=== PATIENT | female | born 1985 | race Caucasian/White ===

== ENCOUNTER 2021-01-31 13:33 | Emergency (ER) | payer OTHER, SELFPAY ==
--- NOTE | 2021-01-31 13:41 | ED.URI ---
HPI - URI/Sore Throat General Chief Complaint: Upper Respiratory Infection Stated Complaint: Runny Nose, Drainage, Sore Throat Time Seen by Provider: 01/31/21 13:42 Source: patient and RN notes reviewed History of Present Illness HPI Narrative: Patient is a 35-year-old female who presents the urgent care with complaints of runny nose and sore throat. Patient states that it started last night. Denies of any known exposure to Covid or strep. Patient has not been vaccinated. Denies of any fever, chills, nausea, vomiting. No other acute complaints. No acute distress noted. Patient aware of the plan of care. Some parts of this dictation were generated by voice recognition software and may contain typographical and/or grammatical inaccuracies. Related Data Home Medications Medication Instructions Recorded Confirmed atorvastatin 20 mg PO DAILY 01/31/21 01/31/21 cetirizine [Zyrtec] 10 mg PO DAILY 01/31/21 01/31/21 levothyroxine 50 mcg PO DAILY 01/31/21 01/31/21 lisinopril 40 mg PO DAILY 01/31/21 01/31/21 subcutaneous insulin pump [[place] 01/31/21 01/31/21 2020 Insulin Pump] Allergies Allergy/AdvReac Type Severity Reaction Status Date / Time amoxicillin [From Amoxil] Allergy Rash Verified 01/31/21 13:58 Penicillins Allergy Swelling Verified 01/31/21 13:58 of Lip/Tongue/Throat Review of Systems Review of Systems: CONSTITUTIONAL: Denies fever, chills, or sweats. EYES: Denies visual changes, redness, or discharge. ENT: Reports of rhinorrhea and sore throat with postnasal drainage CARDIOVASCULAR: Denies chest pain, palpitations, or edema. RESPIRATORY: Denies cough or dyspnea. GASTROINTESTINAL: Denies abdominal pain, nausea, vomiting, or diarrhea. GENITOURINARY: Denies dysuria or hematuria. SKIN: Denies rash or itching. MUSCULOSKELETAL: Denies back pain, joint pain, or myalgia. NEUROLOGIC: Denies headache, numbness, or weakness. All other systems reviewed are negative, except as documented in HPI. PMFSH Comments At the time of my signature, I reviewed and agree with the nursing past medical, surgical, social, and family history. There is no relevant family history pertinent to the patient complaint. Exam Narrative: GENERAL: This is a well-nourished, well-developed patient, in no apparent distress. HEAD: normocephalic, atraumatic. EYES: PERRL. Sclera clear/white. Vision is grossly intact. EARS: External ears normal, auditory canals clear and without drainage, TMs normal without perforation. Hearing grossly intact. NOSE: External nose normal with no obvious nasal discharge, nares without redness, clear rhinorrhea. THROAT: Mucous membranes moist, posterior pharynx clear. Mild postnasal drainage NECK: Neck supple, non-tender without lymphadenopathy, masses or thyromegaly. CARDIOVASCULAR: Regular rate and rhythm without murmurs, gallops, or rubs. RESPIRATORY: Clear to auscultation. Breath sounds equal bilaterally. No wheezes, rales, or rhonchi. SKIN: warm, intact with no suspicious lesions or rash, good texture and turgor. NEURO: awake, alert, and oriented to person, place and time. There were no obvious focal neurologic abnormalities. EXTREMITIES: No clubbing, cyanosis, or edema. Course Vital Signs Vital signs: Vital Signs Temperature 97.3 F L 01/31/21 13:44 Pulse Rate 103 H 01/31/21 13:44 Respiratory Rate 16 01/31/21 13:44 Blood Pressure 148/73 H 01/31/21 13:44 Pulse Oximetry 100 01/31/21 13:44 Temperature 97.3 F L 01/31/21 13:44 Pulse Rate 103 H 01/31/21 13:44 Respiratory Rate 16 01/31/21 13:44 Blood Pressure 148/73 H 01/31/21 13:44 Pulse Oximetry 100 01/31/21 13:44 Reviewed-patient is informed that they may have pre-hypertension or hypertension based on a blood pressure reading in the department. I recommend the patient call the primary care provider listed on their discharge instructions or a physician of their choice this week to arrange follow-up for further evaluation o
[2021-01-31 13:44] VITALS: BP 148/73; PULSE 103; RESP 16; TEMP 36.3; O2SAT 100
== END 2021-01-31 14:23 | disposition home or self-care (01) ==
PROVIDERS: Emergency Provider Nurse Practitioner Family; PCP Physician Assistant
DX: J06.9 Acute upper respiratory infection, unspecified (principal)
CPT/HCPCS: 87081; 87880; 99213; G0463

== ENCOUNTER 2021-11-07 12:50 | Outpatient (CLI) | payer OTHER, SELFPAY ==
[2021-11-07 18:30] LABS: Add Urine Microscopic? YES; Appearance Urine Cloudy (Clear); Bilirubin Urine Negative (Negative); Blood Urine 1+ (Negative); Color Urine Yellow (Yellow); Glucose Urine UA Trace mg/dL (Negative); Ketones Urine Negative (Negative); Leukocyte Esterase Ur 1+ LEU/UL (Negative); Nitrate Urine Positive (Negative); Protein Urine 3+ mg/dL (Negative); Specific Grav Ur 1.025 (1.001-1.035); Urobilinogen Urine 0.2 mg/dL (<2.0)
[2021-11-07 18:34] LABS: Bacteria Urine 2+ /hpf; RBC Urine 21-50 /hpf (0-2); Squamous Epithelial Cell Urine Occasional /hpf (Few); WBC Urine >75 /hpf
== END 2021-11-07 12:51 | disposition home or self-care (01) ==
PROVIDERS: PCP Family Medicine; Visit Provider Family Medicine
DX: N39.0 Urinary tract infection, site not specified (principal); R30.0 Dysuria; R35.0 Frequency of micturition
CPT/HCPCS: 81001; 87077; 87086; 87186

== ENCOUNTER 2021-12-30 13:24 | Outpatient (CLI) | payer OTHER, SELFPAY ==
[2021-12-30 18:44] LABS: Appearance Urine Clear (Clear); Bilirubin Urine Negative (Negative); Color Urine Yellow (Yellow); Glucose Urine UA 2+ mg/dL (Negative); Ketones Urine Negative (Negative); Leukocyte Esterase Ur Trace LEU/UL (NEGATIVE); Nitrate Urine Negative (Negative); Protein Urine 2+ mg/dL (Negative); Urobilinogen Urine 0.2 mg/dL (<2.0)
[2021-12-30 19:04] LABS: Mucus Urine Rare /lpf; RBC Urine 0-2 /hpf (0-2); Squamous Epithelial Cell Urine Rare /hpf (Few); WBC Urine 16-20 /hpf (0-3)
[2021-12-30 19:09] LABS: Add Urine Microscopic? YES; Blood Urine Trace-Intact (Negative)
== END 2021-12-30 13:25 | disposition home or self-care (01) ==
PROVIDERS: PCP Family Medicine; Visit Provider Family Medicine
DX: N39.0 Urinary tract infection, site not specified (principal)
CPT/HCPCS: 81001

== ENCOUNTER 2022-07-17 08:32 | Outpatient (CLI) | payer OTHER, SELFPAY ==
--- NOTE | ~2022-07-17 | XR_ITS ---
PA, oblique, and lateral views of the right thumb CLINICAL HISTORY: Pain FINDINGS: No fracture or dislocation seen. Joint spaces are preserved. Soft tissues are unremarkable. IMPRESSION: Unremarkable exam. Reviewed, dictated and finalized at location M. E INSPECTOR FINAL IMPRESSION: Unremarkable exam.
[2022-07-17 19:24] LABS: Iron 84 ug/dL (37-170)
[2022-07-17 19:33] LABS: Percent Iron Saturation 28 % (20-50)
[2022-07-17 19:35] LABS: Alanine Aminotransferase 23 U/L (6-35); Albumin Level 4.3 g/dL (3.5-5.1); Alkaline Phosphatase 52 U/L (38-126); Anion Gap 4 mmol/L (8-16); Aspartate Amino Transferase 91 U/L (14-36); Bilirubin,Total 0.6 mg/dL (0.2-1.3); Blood Urea Nitrogen 39 mg/dL (7-17); Calcium 9.6 mg/dL (8.4-10.2); Carbon Dioxide 30 mmol/L (22-30); Chloride 97 mmol/L (98-107); Estimated Glomerular Filt Rate 34; Glucose 182 mg/dL (65-110); Potassium 4.4 mmol/L (3.4-5.0); Sodium 131 mmol/L (137-145)
[2022-07-17 21:08] LABS: Basophils Absolute Auto 0.1 K/mm3 (0.0-0.1); Eosinophils Absolute Auto 0.7 K/mm3 (0-0.3); Eosinophils Percent Auto 9.2 % (0-4.4); Hematocrit 38.7 % (37.0-47.0); Hemoglobin 12.1 g/dL (12.0-15.0); Immature Granulocyte Absolute 0.03 K/mm3 (0.00-0.031); Immature Granulocyte Percent A 0.4 % (0-0.5); Lymphocytes Absolute Auto 1.77 K/mm3 (0.9-3.2); Lymphocytes Percent Auto 22.2 % (18.3-44.2); Mean Corpuscular HGB Conc 31.3 g/dl (32-36); Mean Corpuscular Hemoglobin 29.4 pg (26-34); Mean Corpuscular Volume 93.9 fl (80-100); Mean Platelet Volume 10.6 fl (7.4-10.4); Monocytes Absolute Auto 0.6 K/mm3 (0.1-0.6); Monocytes Percent Auto 7.5 % (2.6-8.5); Neutrophils Absolute Auto 4.8 K/mm3 (1.3-6.7); Neutrophils Percent Auto 59.7 % (45.5-73.1); Platelet Count Result 256 k/mm3 (150-375); Red Blood Count 4.12 M/mm3 (4.2-5.4); Red Cell Distribution Width 13.1 % (11.5-14.5)
[2022-07-20 12:55] LABS: Erythropoietin (EPO) 8.8 mIU/mL (2.6-18.5)
== END 2022-07-17 08:33 | disposition home or self-care (01) ==
LOC: ANHBWCLAB 08:33
PROVIDERS: PCP Family Medicine; Visit Provider Family Medicine
DX: D64.9 Anemia, unspecified (principal); E03.9 Hypothyroidism, unspecified; E11.319 Type 2 diabetes mellitus with unspecified diabetic retinopathy without macular edema; I10 Essential (primary) hypertension; N28.9 Disorder of kidney and ureter, unspecified; M79.646 Pain in unspecified finger(s)
CPT/HCPCS: 36415; 73140; 80053; 82668; 83540; 83550; 85025

== ENCOUNTER 2022-09-15 15:10 | Outpatient (CLI) | payer OTHER, SELFPAY ==
[2022-09-15 17:38] LABS: Appearance Urine Clear (Clear); Bacteria Urine None Seen /hpf; Bilirubin Urine Negative (Negative); Color Urine Yellow (Yellow); Glucose Urine UA 2+ mg/dL (Negative); Ketones Urine Negative (Negative); Leukocyte Esterase Ur Negative LEU/UL (NEGATIVE); Nitrate Urine Negative (Negative); Non Pathogenic Casts 0-2; Protein Urine 3+ mg/dL (Negative); RBC Urine 0-2 /hpf (0-2); Specific Grav Ur 1.016 (1.001-1.035); Squamous Epithelial Cell Urine None seen /hpf (Few); Urobilinogen Urine 0.2 mg/dL (<2.0); WBC Urine 0-5 /hpf (0-3); pH Urine 5.5 (5.0-9.0)
[2022-09-15 17:46] LABS: Add Urine Microscopic? YES
[2022-09-15 18:40] LABS: Alanine Aminotransferase 18 U/L (6-35); Albumin Level 3.9 g/dL (3.5-5.1); Alkaline Phosphatase 43 U/L (38-126); Anion Gap 8 mmol/L (8-16); Aspartate Amino Transferase 24 U/L (14-36); Bilirubin,Total 0.4 mg/dL (0.2-1.3); Blood Urea Nitrogen 29 mg/dL (7-17); Calcium 9.1 mg/dL (8.4-10.2); Carbon Dioxide 27 mmol/L (22-30); Chloride 102 mmol/L (98-107); Estimated Glomerular Filt Rate 40; Glucose 239 mg/dL (65-110); Sodium 137 mmol/L (137-145)
[2022-09-15 18:47] LABS: Creatinine Urine 42.1 mg/dL
[2022-09-15 19:47] LABS: Microalbumin Urine Random > 1140.0 mg/L (0-16.7)
== END 2022-09-15 15:11 | disposition home or self-care (01) ==
LOC: ANHBWCLAB 15:11
PROVIDERS: PCP Family Medicine; Visit Provider Family Medicine
DX: Z00.00 Encounter for general adult medical examination without abnormal findings (principal); D64.9 Anemia, unspecified; E03.9 Hypothyroidism, unspecified; E11.319 Type 2 diabetes mellitus with unspecified diabetic retinopathy without macular edema; I10 Essential (primary) hypertension; N28.9 Disorder of kidney and ureter, unspecified; R11.2 Nausea with vomiting, unspecified
CPT/HCPCS: 36415; 80053; 81001; 82043; 83036

== ENCOUNTER 2025-04-01 10:13 | Outpatient (CLI) | payer BC, SELFPAY ==
--- NOTE | 2025-04-01 10:27 | ECG_ITS ---
Test Date: 2025-04-01 10:47:47 Measurements Intervals [place] Rate: 77 P: 37 MO: 131 QRS: 60 QRSD: 83 T: 67 QT: 350 QTc: 396 Interpretive Statements SINUS RHYTHM No previous ECG available for comparison Electronically Signed On 04-01-2025 10:56:22 RN PERIOPERATIVE by Ag Caicedo D.O
[2025-04-01 10:41] LABS: INR 1.0; Prothrombin Time 12.7 Seconds (11.1-14.7)
[2025-04-01 10:42] LABS: Partial Thromboplastin Time 29.2 Seconds (22.3-36.8)
[2025-04-01 10:49] LABS: Anion Gap 10 mmol/L (4-12); Blood Urea Nitrogen 20 mg/dL (7-17); Calcium 9.7 mg/dL (8.4-10.2); Carbon Dioxide 24 mmol/L (22-30); Chloride 103 mmol/L (98-107); Estimated Glomerular Filt Rate 35; Glucose 147 mg/dL (65-110); Potassium 4.1 mmol/L (3.4-5.0); Sodium 137 mmol/L (137-145)
== END 2025-04-01 10:14 | disposition home or self-care (01) ==
LOC: ANHLAB 10:13
PROVIDERS: PCP Family Medicine; Visit Provider Anesthesiology
DX: N28.9 Disorder of kidney and ureter, unspecified (principal); E10.9 Type 1 diabetes mellitus without complications; I10 Essential (primary) hypertension; Z01.818 Encounter for other preprocedural examination
CPT/HCPCS: 36415; 80048; 85610; 85730; 93005

== ENCOUNTER 2025-04-03 02:13 | Day surgery (SDC) | payer BC, SELFPAY ==
--- OUTSIDE RECORDS SUMMARY | 2017-04-07 04:58 | XMS_ITS | Continuity of Care Document ---
Author Organization [facility] Address [address] [place] [address] Phone Care Team Providers Care Janitor Cleaner Name Role Phone Calvin Lord MD Unavailable Unavailable Allergies, Adverse Reactions, Alerts Substance Reaction Status Criticality amoxicillin Active No Information PENICILLIN Active No Information Medications Medication Instructions Dosage Effective Dates (start - stop) Status Comments Humalog 100 unit/mL subcutaneous solution inject by subcutaneous route per prescriber's instructions. Insulin dosing requires individualization. 0.00 - Active labetalol 100 mg tablet take 1 tablet by oral route 2 times every day 100 MG - Active Cinnamon 500 mg capsule - Active biotin 1 mg capsule - Active Tablet 28 mg iron-800 mcg - Active cranberry 400 mg capsule - Active Advance Directives Directive Yes / No Effective Date File Name No Information Encounters Encounter Description Practice Location Reason(s) For Visit Diagnoses Date Provider Providers Copied on Encounter [facility], [address] [place] [address] [address], [place], [place], [id number], [place] tel:[phone] [address] Dutch GONZALEZ Professional No Information [address], [place], [place], [id number], [place]. tel:[phone] Family History Family Member Type Diagnosis Age At Onset Paternal grandfather Problem (finding) diabetes mellit [place] type 2 Paternal grandmother Problem (finding) diabetes mellit [place] type 2 Payers Payer name Insurance type Covered republican ID Authorfernando marie(s) No Information Social History Type Description Quantity Date Captured Comments Alcohol Use Details Caffeine Use Details Tobacco Use Status No Information Smoking Status Never smoker Non-Smoking Tobacco Use Details : No Details Available : No Details Available Sex Female Chief Complaint And Reason For Visit No Information Reason For Referral Reason For Referral No Information History Of Present Illness Encounter Date Complaint History Of Prese nt Illness No Information Functional Status Date Functional Assessmen t No Information Instructions Date Instruction Additional Infor mation No Information Assessments Type Assessment Date No Information Patient Care Teams Name Effective Dates (start - stop) Status Members No Information
--- NOTE | 2025-03-30 08:30 | PM.IMHP ---
H&P: HPI History of Present Illness Date/Time: 03/30/25 08:30 Chief Complaint: Patient shoulder pain left. She essentially has a frozen shoulder is unable elevate her arm above about 120?. She has had physical therapy injections and anti-inflammatory medication without significant relief. She would like to consider a manipulation. Review of Systems Musculoskeletal: Musculoskeletal: Reports arthralgias, Reports joint swelling and Reports stiffness PMFSH Past Medical History Medical History Pre-eclampsia Trigger thumb Retinopathy Cataract Macular edema Headache Asthma Anemia Preventative health care Hip pain Pain of right thumb Thumb pain Recurrent UTI Nausea & vomiting Surgical History Surgical History History of surgical procedure on eye proper using laser H/O vitrectomy Hx of section Hx of dilation and curettage Hx of cataract surgery History of carpal tunnel surgery Family History Family History Father Hypertension Heart disease Depression DVT (deep venous thrombosis) Mother Asthma Disorder of thyroid Hypertension Depression Son Depression Grandparent Hypertension Disorder of thyroid Heart disease Diabetes mellitus Grandparent Hypertension Family history of elevated blood lipids Family history of malignant neoplasm of ovary Sibling DVT (deep venous thrombosis) Social History Social History (Updated 03/28/25 @ 07:42 by Suzie Hassan [facility]) Smoking status: Never smoker Second hand tobacco smoke exposure: No Alcohol intake: current Alcohol use details: rare- Mixed Drinks Substance use: never Current Housing: Decline to Answer Concerned About Future Housing: Decline to Answer Difficulty Paying Gas/Electric Bills: Decline to Answer Difficulty Paying for Meds: Decline to Answer Currently Unemployed: Decline to Answer Education: Decline to Answer Difficulty w/ Childcare or Family Care: Decline to Answer Living arrangements: with family Gender identity (if verbalized by the patient): Female Sexual Orientation (if Verbalized by the Patient): Straight or Heterosexual Agree to blood products: Yes Meds Home Medications and Allergies Home Medications ?Medication ?Instructions ?Recorded ?Confirmed ?Type cetirizine 10 mg capsule (Zyrtec) 10 mg PO DAILY 01/31/21 03/28/25 History subcutaneous insulin pump 01/31/21 03/28/25 History insulin aspart U-100 100 unit/mL 1 sliding scale dose subcut 01/25/24 03/28/25 History subcutaneous solution (Novolog USEASDIRECTD U-100 Insulin aspart) levothyroxine 50 mcg tablet 75 mcg PO DAILY 01/25/24 03/28/25 History atorvastatin 20 mg tablet 20 mg PO DAILY #90 tabs 11/14/24 03/28/25 Rx Held on 03/02/25. Instructions: .Provider Order biotin 1 mg capsule 1 mg PO DAILY 12/15/24 03/28/25 History blood-glucose sensor (Dexcom G6 12/15/24 03/28/25 History Sensor device) zinc acetate 25 mg (zinc) capsule 25 mg PO DAILY 12/15/24 03/28/25 History tirzepatide 12.5 mg/0.5 mL 12.5 mg (0.5 mL) subcut WEEKLY #6 12/28/24 02/23/25 Rx subcutaneous pen injector mL (Mounjaro) Held on 03/02/25. Instructions: .Provider Order lisinopril 40 mg tablet 40 mg PO DAILY #90 tabs 01/09/25 03/28/25 Rx Held on 03/02/25. Instructions: .Provider Order ascorbic acid (vitamin C) 500 mg mg PO 02/23/25 03/28/25 History capsule cinnamon bark 500 mg capsule 1,000 mg PO DAILY 02/23/25 03/28/25 History (Cinnamon) cranberry 500 mg capsule 10,000 mg PO BID 02/23/25 03/28/25 History tirzepatide 10 mg/0.5 mL 10 mg (0.5 mL) subcut WEEKLY #2 mL 03/07/25 03/28/25 Rx subcutaneous pen injector (Mounjaro) cholecalciferol (vitamin D3) 25 50,000 unit PO WEEKLY 03/28/25 03/28/25 History mcg (1,000 unit) capsule Allergies Allergy/AdvReac Type Severity Reaction Status Date / Time amoxicillin (From Amoxil) Allergy Rash Verified 03/28/25 07:14 clindamycin Allergy Rash Verified 03/28/25 07:14 Penicillins Allergy Swelling Verified 03/28/25 07:14 of Lip/Tongue/Throat Exam Narrative: On exam she has elevation about 120. She has external rotation to 40. She has pain and stiffness beyond this. Neurologically she is intact. She has pain with any manipulation. 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 She has failed conservative treatment. She would like to consider manipulation. I have discussed with her in detail including the risks, benefits, limitations, and alternatives in detail, including fracture. These were discussed in detail the patient understands and agrees like to proceed. Will proceed per her request with manipulation of her left shoulder.
[2025-03-31 12:59] VITALS: BMI 25.7
--- NOTE | 2025-03-31 13:10 | PC.NURSE ---
[facility] has started construction of its new state of the art ER which will open Spring 2026. With this, we anticipate parking may be a challenge for some our surgical patients and families. Parking spaces are limited but are available for all Surgical, obstetrics, and ER patients sharing this lot. If you arrive and find you are having a hard time finding a parking space, please note that we understand the challenges, please drive around the hospital and park near Hospital Entrance 1. When you enter this entrance, you can ask a volunteer to direct or take you back to the surgical waiting area to check in. We appreciate everyone?s understanding of these expected challenges while we build for your future. Report to the Outpatient Waiting Room, entrance under the green pavilion located off [address], at time _0645_ on date _[id number]_. Planned Procedure Time: _0845_.? Time changes happen often and if your time is changed the preop area will call you the afternoon before. - You and your visitor will be asked to self-screen and do not enter if you have any COVID symptoms. Please call surgeon if you need to reschedule. - A mask is optional within the hospital at this time. Patients may have clear liquids (water, carbonated beverages, clear teas, apple juice) until 3 hours prior to surgery with a maximum of 20 ounces. - No food from midnight until time of surgery and no smoking, or chewing tobacco (or any form of nicotine). No chewing gum, candy or mints. Take only the following medications with a SIP of water on the morning of surgery: __Continue insulin pump. Call preop [phone] Thursday morning if any problems. DO NOT STOP ANY OF YOUR OTHER PRESCRIPTION MEDICATIONS PRIOR TO SURGERY EXCEPT THE FOLLOWING Hold all vitamins and supplements for 3 days per anesthesiologist. Stop now. Medications to discontinue per physician Date to take last dose Please no make-up, nail dominican, hairspray, perfume, deodorant, or body powder the day of surgery.? No jewelry (including any body piercings) or valuables the day of surgery, leave them at home.? Please take a shower or bath the night before, or the morning of, surgery with an antibacterial soap.? Wear comfortable, loose fitting clothing.? - Jewelry must be removed prior to entering the operating room.? Rings and piercings that are not removed may be cut off. - The hospital will not accept responsibility for valuables.? - Please leave all valuables, including medications, at home the day of surgery. If you are going home after surgery, a licensed driver salesman must drive you home.? - NO public transportation without another adult if you receive anesthesia. - We recommend that an adult stay with you for 24 hours following discharge. - We also recommend that you do not drive, make important decision, drink alcoholic beverages, or take any drugs that were not prescribed by your health care provider for at least 24 hours after your discharge time. Follow any additional instructions given to you from your surgeon. Telephone instructions given to _Mally__and asked if any additional questions and then verbalized understanding. Patient advised to call surgeon office or pre surgery nurse liaison [phone] if any additional questions.
--- OUTSIDE RECORDS SUMMARY | 2025-04-03 02:17 | XMS_ITS | Encounter Summary ---
Author Organization [facility] Address [address] [place] [address] Care Team Providers Care Orchid Superintendent Name Role Phone Aaron Bruno MD Primary Care Provider [phone] Reason for Visit * Reason Onset Date Comments MEDICATION REFILL 02/09/2024 Encounter Details Date Type Department Care Team (Late st Contact Info) Description 02/09/2024 Refill [facility] - Endocrinology [address] [place] [address] Erika Joseph, DO [address] [id number] MEDICATION REFILL Social History Tobacco Use Types Packs/Day Years Used Date Smoking Tobacco: Never Smokeless Tobacco: Never Alcohol Use Standard Drinks/Week Comments No 0 (1 standard drink = 0.6 oz pur e alcohol) Comments No Sex and Gender Information Value Date Recorded Sex Assigned at Not on file Legal Sex Female 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 Answer Date of Assessment Author No 04/27/2018 2:52 PM Kaycee Seymour RN * Is person blind or have serious difficulty seeing? Answer Date of Assessment Author No 04/27/2018 2:52 PM Kaycee Seymour RN * Does person have serious difficulty walking/climbing stairs? Answer Date of Assessment Author No 04/27/2018 2:52 PM Kaycee Seymour RN * Does person have difficulty dressing/bathing? Answer Date of Assessment Author No 04/27/2018 2:52 PM Kaycee Seymour RN * Does person have difficulty doing errands alone? Answer Date of Assessment Author No 04/27/2018 2:52 PM Kaycee Seymour RN documented as of this encounter Mental Status * Does person have difficulty concentrating/remembering/making decisions? 

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
--- OUTSIDE RECORDS SUMMARY | 2025-04-03 02:18 | XMS_ITS | Encounter Summary ---
Author Organization [facility] Address [address] [place] [address] Care Team Providers Care Felter Tennis Balls Name Role Phone Segun Hankins Primary Care Provider [phone] Aaron Bruno MD Primary Care Provider [phone] Aaron Bruno MD Primary Care Provider [phone] Reason for Visit * Reason Onset Date Comments Question 01/03/2022 Encounter Details Date Type Department Care Team (Late st Contact Info) Description 01/03/2022 Telephone [facility] End[facility], [facility] [address] [place] [address] Erika Joseph, DO [address] [facility] [address] [place] [id number] Question Social History Tobacco Use Types Packs/Day Years Used Date Smoking Tobacco: Never Smokeless Tobacco: Never Alcohol Use Standard Drinks/Week Comments No 0 (1 standard drink = 0.6 oz pur e alcohol) Comments No Sex and Gender Information Value Date Recorded Sex Assigned at Not on file Legal Sex Female 7:06 AM DIRECTOR DAY CARE CENTER Gender Identity Not on file Sexual Orientation [...] Kaycee Seymour RN documented in this encounter Miscellaneous Notes * Telephone Encounter - Elin Payne RN - 01/03/2022 4:05 PM CDT Pt called office stating that she is running out of Omnipods sooner than it is prescribed for. She stated that sometimes she is running out of insulin but not all the time. She stated that she changes the pods every 2 days rather than every 3 days because it feels like it's getting infected. She stated that it's itchy and it drives her crazy and she has to change it. She is wondering if Dr. Joseph could change the prescription to every 2 days instead of every 3 days. documented in this encounter Plan of Treatment Not on file documented as of this encounter Visit Diagnoses Not on filedocumented in this encounter Care Teams Felter Tennis Balls Relationship Specialty Start Date End Date Segun Hankins PA [address] [place] [id number] PCP - General 05/12/18 02/22/23 Aaron Bruno MD [address] [place] [phone] PCP - General Family Medicine 02/23/23 12/30/23 Aaron Bruno MD [address] [place] [address] PCP - General Family Medicine 12/31/23 documented as of this encounter
--- OUTSIDE RECORDS SUMMARY | 2025-04-03 02:18 | XMS_ITS | Clinical Summary ---
Author Organization [facility] Address [address] [place] [address] Phone Care Team Providers Care Property Master Name Role Phone Segun Hankins Primary Care Provider [phone] Allergies Active Allergy Reactions Criticality Noted Date Comments Amoxicillin Rash,Swelling 12/12/2016 Penicillins Rash,Swelling 12/12/2016 Medications Vit-Fe Fumarate-FA ( VITAMIN PO) Take by mouth daily. Active Cholecalcifero l (VITAMIN D PO) Take by mouth. Activ e Ascorbic Acid (VITAMIN C PO) Take by mouth. Active Cranberry-Grace min C (AZO CRANBERRY URINARY TRACT PO) Take by mouth. Activ e BIOTIN PO Take by mouth. Activ e labetalol (NORMODYNE) 100 MG Tablet Take 1 Tab by mouth 2 times daily. 180 Tab 3 7 Active Additional Information Patient taking differently: 200 mgOral 2 TIMES DAILY, Reported on 10/25/2018 Blood Glucose Monitoring Suppl (ONE TOUCH ULTRA SYSTEM KIT) w/Device Kit 1 Kit by Does not apply route daily. 1 Each 7 Active Lancets Misc Test 4 times daily. 400 Lancet 3 7 Active cyclobenzaprin e (FLEXERIL) 10 MG Tablet TK 1 T PO TID PRN 0 8 Active furosemide (LASIX) 40 MG Tablet Take 40 mg by mouth daily. 11 8 Active NIFEdipine CR (PROCARDIA-XL) 30 MG TABLET SR 24 HR Take by mouth. 8 Active Zinc 50 MG Capsule Take 50 mg by mouth daily. Active IRON POIndications: once a day Take 325 mg by mouth daily. Active insulin lispro (ADMELOG) 100 UNIT/ML Solution UP TO 100 UNITS EVERY DAY SUBCUTANEOUSLY PER INSULIN PUMP SETTING 90 mL 1 9 Active predniSONE (DELTASONE) 20 MG Tablet Take 1 Tab by mouth daily. 9 Tab 9 Active Glucose Blood (CONTOUR NEXT TEST) Strip Test blood glucose 6-8 times daily. 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 12/12/2016 High blood pressure 12/12/2016 Dyslipidemia 12/12/2016 Family History Medical History Relation Name Comments Heart Disease Father Narcolepsy Father Thyroid Nodule Mother Relation Name Status Comments Father Mother Social History Tobacco Use Types Packs/Day Years Used Date Smoking Tobacco: Never Smokeless Tobacco: Never Tobacco Cessation:Counseling Given: No Alcohol Use Standard Drinks/Week Comments Yes 0 (1 standard drink = 0.6 oz pur e alcohol) Sexually Active Control Partners Comments Yes Male Comments No Sex and Gender Information Value Date Recorded Sex Assigned at Not on file Legal Sex Female 11:36 PM CDT Gender Identity Not on file Sexual Orientation Not on file Last Filed Vital Signs Vital Sign Reading Time Taken Comments Blood Pressure 145/82 12/01/2018 4:12 PM CDT Pulse 82 12/01/2018 4:12 PM CDT Temperature 36.9 C (98.4 F) 12/01/2018 3:20 PM CDT Respiratory Rate 17 12/01/2018 4:12 PM CDT Oxygen Saturation 99% 12/01/2018 3:20 PM CDT Inhaled Oxygen Concentration - - Weight 88.5 kg (195 lb) 12/01/2018 3:20 PM CDT Height 165.1 cm (5' 5) 12/01/2018 3:20 PM CDT Body Mass Index 32.45 12/01/2018 3:20 PM CDT Plan of Treatment Health Maintenance Due Date Last Done Comments Diabetes: Foot Exam 1987 Hepatitis C Virus (HCV) Screening 1987 Hepatitis B Immunization (1 of 3 - 19+ 3-dose series) 2006 Pneumococcal Immunization Combined (1 of 2 - PCV) 2006 Pap Smear 2008 Human Papillomavirus (HPV) Immunization (1 - 3-dose SCDM series) 2014 Cervical Cancer Screening (CCS) 2017 HPV/Cotest 2017 Diabetes: Nephropathy Screening 03/28/2020 03/28/2019, 01/18/2019, 10/25/2018, Additional history exists Diabetes: Hemoglobin A1c 06/28/2021 021, 03/28/2019, 09/02/2017 Diabetes: Eye Exam 12/19/2022 12/19/2021, 0 09/17/2020, 08/16/2020, Additional history exists Influenza Immunization (#1) 2025 05/18/2005 SARS-COV-2 Immunization ( season) 2025 Respiratory Syncytial Virus (RSV) Immunization (Adult) (1 - 1-dose 75+ series) 2062 DTaP/Tdap/Td Immunization Discontinued 04/28/2011 TdaP Immunization Completed 04/28/2011 Meningococcal Immunization (ACWY) Aged Out No longer eligible based on patient's age to complete this topic Rotavirus Immunization Aged Out No lo nger eligible based on patient's age to complete this topic Procedures Procedure Name Priority Date/Time Associated Diagnosis Comments DILATED EYE EXAM 12/19/2021 1 2:00 AM CDT CMP (COMPREHENSIVE METABOLIC PANEL) Routine 03/28/2019 HEMOGLOBIN, A1C Routine 03/28/2019 from Last 3 Months or Most Recently Relevant to Health Maintenance Results * DILATED EYE EXAM (12/19/2021 12:00 AM CDT) 12/19/2021 us Not On File Provider PROCEDURE/MINOR SURGICAL OR DERABLES Final Result SCAN * HEMOGLOBIN, A1C (03/28/2019) HGB-A1C 9.1 % Blood specimen (specimen) 03/28/2019 Segun Hankins PAC CHEMISTRY ORDERABLES Final Re sult * CMP (COMPREHENSIVE METABOLIC PANEL) (03/28/2019) Blood specimen (specimen) us Segun Hankins PAC CHEMISTRY ORDERABLES Final Re sult from Last 3 Months or Most Recently Relevant to Health Maintenance Insurance [employer] Care Teams Property Master Relationship Specialty Start Date End Date Segun Hankins PAC [address] [place] [phone] PCP - General Physician Video System Repairer 12/12/16
--- OUTSIDE RECORDS SUMMARY | 2025-04-03 02:18 | XMS_ITS | Encounter Summary ---
Author Organization [facility] Address [address] [place] [address] Care Team Providers Care Online Health And Fitness Coach Name Role Phone Aaron Bruno MD Primary Care Provider [phone] Reason for Visit * Reason Onset Date Comments MEDICATION REFILL 02/07/2024 Encounter Details Date Type Department Care Team (Late st Contact Info) Description 02/07/2024 Refill [facility] - Endocrinology [address] [place] [address] Erika Joseph, DO [address] [id number] MEDICATION REFILL Social History Tobacco Use Types Packs/Day Years Used Date Smoking Tobacco: Never Smokeless Tobacco: Never Alcohol Use Standard Drinks/Week Comments No 0 (1 standard drink = 0.6 oz pur e alcohol) Comments No Sex and Gender Information Value Date Recorded Sex Assigned at Not on file 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
--- OUTSIDE RECORDS SUMMARY | 2025-04-03 02:18 | XMS_ITS | Encounter Summary ---
Author Organization [facility] Address [address] [place] [address] Care Team Providers Care Kitchenhand Name Role Phone Segun Hankins Primary Care Provider [phone] Aaron Bruno MD Primary Care Provider [phone] Aaron Bruno MD Primary Care Provider [phone] Reason for Visit * Reason Onset Date Comments Question 09/30/2022 Encounter Details Date Type Department Care Team (Late st Contact Info) Description 09/30/2022 Telephone [facility] - Endocrinology [address] [place] [address] Erika Joseph, DO [address] [facility] [address] [place] [address] Question Social History Tobacco Use Types Packs/Day Years Used Date Smoking Tobacco: Never Smokeless Tobacco: Never Alcohol Use Standard Drinks/Week Comments No 0 (1 standard drink = 0.6 oz pur e alcohol) Comments No Sex and Gender Information Value Date Recorded Sex Assigned at Not on file 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 Her doctor wanted pt to reach out to Dr. oJseph to see if she needs to adjust her insulin. Pt wants to know if she should adjust her bolus amount in her pump. documented in this encounter Plan of Treatment Not on file documented as of this encounter Visit Diagnoses Not on filedocumented in this encounter Care Teams Kitchenhand Relationship Specialty Start Date End Date Segun Hankins PA [address] [place] [address] PCP - General 05/12/18 02/22/23 Aaron Bruno MD [address] [place] [id number] PCP - General Family Medicine 02/23/23 12/30/23 Aaron Bruno MD [address] [place] [address] PCP - General Family Medicine 12/31/23 documented as of this encounter
--- NOTE | 2025-04-03 06:43 | WPDHPUPDATE1 ---
History and Physical Update Update Date/Time: 04/03/25 06:43 History and Physical has been reviewed, including an updated exam of the patient. There are NO changes in the patient's condition. Risks, benefits, and alternatives have been discussed and questions answered. Patient agrees to proceed with procedure.
[2025-04-03 07:15] VITALS: BP 127/73; PULSE 93; TEMP 36.8; O2SAT 100; BMI 26.6
[2025-04-03] MEDS: ACETAMINOPHEN 500 MG TABLET 1000 MG PO (07:15)
[2025-04-03] MEDS: LACTATED RINGERS 1,000 ML 30 ML IV CONT (07:15)
--- NOTE | 2025-04-03 08:23 | WPDANESEPPF ---
Anes - Initial Pre Proc Eval Procedure: Operation Date: 04/03/25 08:45 Proposed Procedures p Left Shoulder Manipulation Under Anesthesia - Chandu Whyte MD Date/Time: 04/03/25 08:23 Surgeon: Chandu Whyte MD Pre Op Diagnosis: left frozen shoulder Patient Data Age: 39 Gender: F Height: 1.65 m Weight: 72.5 kg Last Vital Signs Temp 98.2 F 04/03/25 07:15 Pulse 93 04/03/25 07:15 BP 127/73 04/03/25 07:15 Pulse Ox 100 04/03/25 07:15 O2 Del Method Room Air 04/03/25 07:15 Allergies Allergy/AdvReac Type Severity Reaction Status Date / Time amoxicillin (From Amoxil) Allergy Rash Verified 04/03/25 07:30 clindamycin Allergy Rash Verified 04/03/25 07:30 Penicillins Allergy Swelling Verified 04/03/25 07:30 of Lip/Tongue/Throat Home Medications ?Medication ?Instructions ?Recorded ?Confirmed ?Type cetirizine 10 mg capsule (Zyrtec) 10 mg PO DAILY 01/31/21 03/31/25 History subcutaneous insulin pump 01/31/21 03/31/25 History insulin aspart U-100 100 unit/mL 1 sliding scale dose subcut 01/25/24 03/31/25 History subcutaneous solution (Novolog USEASDIRECTD U-100 Insulin aspart) atorvastatin 20 mg tablet 20 mg PO DAILY #90 tabs 11/14/24 04/03/25 Rx biotin 1 mg capsule 1 mg PO DAILY 12/15/24 04/03/25 History blood-glucose sensor (Dexcom G6 12/15/24 03/31/25 History Sensor device) zinc acetate 25 mg (zinc) capsule 50 mg PO DAILY 12/15/24 04/03/25 History lisinopril 40 mg tablet 40 mg PO DAILY #90 tabs 01/09/25 04/03/25 Rx ascorbic acid (vitamin C) 500 mg 1,000 mg PO DAILY 02/23/25 04/03/25 History capsule cinnamon bark 500 mg capsule 1,000 mg PO DAILY 02/23/25 04/03/25 History (Cinnamon) cranberry 500 mg capsule 10,000 mg PO BID 02/23/25 04/03/25 History tirzepatide 10 mg/0.5 mL 10 mg (0.5 mL) subcut WEEKLY #2 mL 03/07/25 03/31/25 Rx subcutaneous pen injector (Melanie) cholecalciferol (vitamin D3) 125 5,000 unit PO DAILY 03/31/25 04/03/25 History mcg (5,000 unit) tablet (Vitamin D3) hydrocodone 5 mg-acetaminophen 325 1 tablet PO Q4H PRN pain #30 tabs 04/03/25 Rx mg tablet Laboratory Tests 04/03/25 07:20 POC Capillary Glucose 118 H mg/dl (65-105) Patient hx anesthesia problems: none Family hx anesthesia problems: none Results Review: All pre-operative results and documents have been reviewed as part of the pre-operative evaluation. [facility] Past Medical History Medical History Pre-eclampsia Trigger thumb Retinopathy Cataract Macular edema Headache Asthma Anemia Preventative health care Hip pain Pain of right thumb Thumb pain Recurrent UTI Nausea & vomiting Surgical History Surgical History History of surgical procedure on eye proper using laser H/O vitrectomy Hx of section Hx of dilation and curettage Hx of cataract surgery History of carpal tunnel surgery Family History Family History Father Hypertension Heart disease Depression DVT (deep venous thrombosis) Mother Asthma Disorder of thyroid Hypertension Depression Son Depression Grandparent Hypertension Disorder of thyroid Heart disease Diabetes mellitus Grandparent Hypertension Family history of elevated blood lipids Family history of malignant neoplasm of ovary Sibling DVT (deep venous thrombosis) Social History Social History (Updated 03/28/25 @ 07:42 by Suzie Hassan CMA) Smoking status: Never smoker Second hand tobacco smoke exposure: No Alcohol intake: current Alcohol use details: rare- Mixed Drinks Substance use: never Current Housing: Decline to Answer Concerned About Future Housing: Decline to Answer Difficulty Paying Gas/Electric Bills: Decline to Answer Difficulty Paying for Meds: Decline to Answer Currently Unemployed: Decline to Answer Education: Decline to Answer Difficulty w/ Childcare or Family Care: Decline to Answer Living arrangements: with family Gender identity (if verbalized by the patient): Female Sexual Orientation (if Verbalized by the Patient): Straight or Heterosexual Spiritual care concerns: No Agree to blood products: Yes Anes - Eval Final PreProcedure Day of Procedure 04/03/25 08:23 Patient weight: overweight Lungs: normal air movement Airway: Mallampati scale class II Neurological: alert and oriented Last oral intake: >/= 8 hours ASA classification: III Emergent: no Anesthetic plan: proceed Anesthesia type and monitoring: general GIVS and standard monitoring Results Review: All pre-operative results and documents have been reviewed as part of the pre-operative evaluation. IDDM, on insulin pump, fsbs 118, CKD stage 3, HTN, hyperlipidemia. Now for shoulder manip under GA. Informed Consent: The patient's anesthetic plan and its attendant risks and benefits were discussed with the patient/family/POA. Questions were solicited and answers provided to the satisfaction of the patient/family/POA.
[2025-04-03] MEDS: LIDOCAINE 1% LOCAL INJ 10 ML VIAL INFILTRATE (08:39)
[2025-04-03] MEDS: TRIAMCINOLONE ACET INJ 40 MG/ML VIAL 20 MG IM (08:40)
--- NOTE | 2025-04-03 08:43 | W.PM.PROC2 ---
Procedure Note - Detailed Date of Procedure 04/03/25 Pre-op Diagnosis Adhesive capsulitis left shoulder Post-op Diagnosis Same Procedure Performed Manipulation under a general anesthetic Surgeon Chandu Whyte MD Anesthesia General Indications Pain and stiffness Description of Procedure Patient was brought to operating room #7. A general anesthetic was administered. The shoulder was gently manipulated to full elevation, abduction and then finally external rotation. The bands tore easily. At this point she had full motion of the shoulder without any impingement. The shoulder was then injected with the 20 milligrams Kenalog 4 cubic centimeters 1% lidocaine. And left the operating room in satisfactory condition. Estimated Blood Loss 0 Complications No immediate complications Condition Stable [facility] Billing Surgery - Charge Forward: Surgery Billing ([id number] Left Shoulder Manipulation)
[2025-04-03 08:50] VITALS: BP 126/78; PULSE 100; RESP 16; O2SAT 100
[2025-04-03 09:20] VITALS: BP 126/78; PULSE 98; RESP 16
[2025-04-03 09:50] VITALS: BP 124/81; PULSE 77; RESP 16
== END 2025-04-03 10:01 | disposition home or self-care (01) ==
PROVIDERS: PCP Family Medicine; Visit Provider Orthopaedic Surgery
PROC: (CPT 23700; principal; 2025-04-03 08:45)
DX: M75.02 Adhesive capsulitis of left shoulder (principal); E10.618 Type 1 diabetes mellitus with other diabetic arthropathy; Z79.85 Long-term (current) use of injectable non-insulin antidiabetic drugs
CPT/HCPCS: 23700; 82948; A9270; J2003; J2250; J2405; J2704; J3010; J3301; J7120